=== PATIENT | female | born 1995 | race Caucasian/White ===

== ENCOUNTER 2016-12-14 23:39 | Emergency (ER) | payer OTHER ==
[~2016-12-14] VITALS: Ht 170.2 cm; Wt 81.5 kg
[2016-12-14 23:48] VITALS: TEMP 37; Ht 170.2 cm; Wt 81.5 kg
[2016-12-15] MEDS ORDERED: XYLOCAINE 1%/SOD BICARB 20 ML VIAL INFIL ONE (00:15)
[2016-12-15] MEDS ORDERED: CLR/5 PO (00:15)
[2016-12-15] MEDS ORDERED: BCPILLS PO (00:15)
[2016-12-15] MEDS ORDERED: MONT1TAB5 PO (00:15)
[2016-12-15] MEDS ORDERED: FLVHFA110 INH (00:15)
--- NOTE | 2016-12-15 00:40 | EMERGENCY ROOM VISIT NOTE ---
ED Visit Note First contact with patient: 23:56 CHIEF COMPLAINT: Finger laceration HISTORY OF PRESENT ILLNESS: This 21-year-old female patient presents to the emergency department ambulatory complaining of lacerations to the left third and fourth digits. She states that at work, she cut the fingers on the handle of a bucket. The bleeding has stopped. Denies weakness or numbness of the finger. The patient has full range of motion of the fingers. The patient rates the pain as stinging and 4/10. The patient denies any other injuries. The patient's tetanus shot is up to date. REVIEW OF SYSTEMS: A 6 system review of systems was completed with positives and pertinent negatives listed in the HPI. ALLERGIES: Cephalosporins, fluticasone, salmeterol MEDICATIONS: See med list PMH: Asthma SOCIAL HISTORY: The patient lives with her parents. Nonsmoker, admits to occasional alcohol use. PHYSICAL EXAM: Vital Signs: Reviewed Nurse's notes, vital signs stable. GENERAL : This is a 21-year-old female, in no acute distress, well developed, well nourished. SKIN: There is a 2 cm long laceration on the medial aspect of the left third finger. The edges gape apart with traction. There is no foreign material in the wound and it looks clean. There is no active bleeding. No deep structures such as tendons, bones, or significant blood vessels are seen in the base of the wound. There is a 1 cm non-gaping laceration to the medial aspect of the left fourth finger. There is no active bleeding. Extension and flexion of the fingers are full and strong. Capillary refill less than 2 seconds. Normal sensation to light and sharp touch. EMERGENCY DEPARTMENT COURSE: I examined the patient. Verbal consent was obtained to perform the procedure. Using sterile technique the wound was cleansed with Betadine. 5 ml of 1% buffered lidocaine was used to perform a digital block to anesthetize the patient. The area was sterilely draped. Once the patient was anesthetized, the wound was copiously irrigated under pressure with sterile saline. The wound was explored and there were no deep structures injured. The laceration was repaired using 3 simple interrupted 5-0 nylon sutures. The patient tolerated the procedure well. Hemostasis was achieved. The area was cleaned with sterile saline and dressed with bacitracin ointment and bandage. The laceration of the left fourth digit was repaired using Dermabond. The patient was discharged home in good condition. DIAGNOSIS: Finger laceration Current/Historical Medications Scheduled Control Pills ( Control Pills), 1 TAB PO DAILY Desloratadine (Clarinex), 5 MG PO DAILY Fluticasone Propionate (Flovent Hfa), 2 PUFFS INH BID Montelukast Sodium (Montelukast Sodium), 1 TAB PO DAILY Allergies Coded Allergies: Cephalosporins (Verified Allergy, Severe, ANAPHYLAXIS, 12/15/16) Fluticasone (Verified Allergy, Severe, ANAPHYLAXIS, 12/15/16) Salmeterol (Verified Allergy, Severe, ANAPHYLAXIS, 12/15/16) Vital Signs Date Time Temp Pulse Resp B/P Pulse Ox O2 Delivery O2 Flow Rate FiO2 12/15/16 00:46 89 16 156/89 99 12/14/16 23:48 37.0 83 18 152/105 100 Room Air Departure Information Impression Primary Impression: Finger laceration Dispostion Home / Self-Care Condition GOOD Referrals Rose Marie Melo (PCP) Patient Instructions ED Laceration Ext Skin Glue, [facility] Additional Instructions You have received 3 sutures on your finger. These sutures are NOT dissolvable and WILL need to be removed by a health care provider in 10-12 days. You can return to the Emergency Department or contact your Primary Care Provider to have the sutures removed. Proper wound care is essential for adequate wound healing and infection prevention. You can shower and clean the wound with soap and water. Do not scour over the wound, pat dry with a towel. Do not submerse the wound (i.e. bathe or dish wash) until the sutures have been removed. You can use an antibiotic ointment with a dressing over the wound for the next 3-4 days. After this time you may leave the wound dry and open to the air. If crust develops over the wound you can use a Q-tip to apply a 1:1 peroxide:water solution to clean the wound. Look for signs of infection of the wound including: increased pain, swelling, foul discharge, streaking, or increased temperature. If any of these are noticed you should return to the Emergency Department for further assessment and treatment. As with any laceration you may have received nerve damage to the surrounding tissues. This damage may or may not be permanent. You should keep the area covered with sunscreen for the first 6 months to 1 year when at risk for exposure to help minimize scarring. You can also use scar reducing creams or Vitamin E oil to help minimize scarring. For pain control, you can use the following [id number] medicines (if >12 yo): - Regular strength (325mg/tab) Tylenol (acetaminophen) 2 tabs every 4-6 hours as needed. Do not exceed 12 tablets in a 24 hour period. Avoid taking more than 4 grams (4000 mg) of Tylenol per day. This includes any other sources of acetaminophen you may take on a regular basis. - Regular strength (200 mg/tab) Advil (ibuprofen) 1-2 tabs every 4-6 hours as needed. Do not exceed a dose of 3200 mg per day. Return to the emergency department if your symptoms worsen despite treatment course outlined above. Problem Qualifiers Primary Impression: Finger laceration Encounter type: initial encounter Qualified Codes: S61.219A - Laceration without foreign body of unspecified finger without damage to nail, initial encounter
[2016-12-15 00:46] VITALS: BP 156/89; PULSE 89; O2SAT 99
== END 2016-12-15 00:50 | disposition home or self-care (01) ==
LOC: C.EDB 23:40 → C.EDC 12-15 00:50
DX: S61.213A Laceration without foreign body of left middle finger without damage to nail, initial encounter (principal); S61.215A Laceration without foreign body of left ring finger without damage to nail, initial encounter; W45.8XXA Other foreign body or object entering through skin, initial encounter; J45.909 Unspecified asthma, uncomplicated; Z79.899 Other long term (current) drug therapy; Z88.8 Allergy status to other drugs, medicaments and biological substances